=== PATIENT | male | born 2000 | race Caucasian/White ===

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

== ENCOUNTER 2018-06-28 02:58 | Emergency (ER) | payer MEDICAID ==
[~2018-06-28] VITALS: Ht 172.7 cm; Wt 109.1 kg
[2018-06-28] MEDS ORDERED: KETOROLAC TROMETHAMINE 60 MG/2 ML VIAL IM ONE (04:15)
[2018-06-28] MEDS ORDERED: CARISOPRODOL 350 MG TABLET PO ONE (04:45)
[2018-06-28 04:53] LABS: BASOPHILS % (AUTO) 0.8 % (0.0-2.0); EOSINOPHILS % (AUTO) 2.5 % (1.0-6.0); HEMATOCRIT 43.9 % (41-53); HEMOGLOBIN 14.6 g/dL (13.5-17.5); LYMPHOCYTES # (AUTO) 2.5 K/uL (1.0-4.8); LYMPHOCYTES % (AUTO) 31.9 % (22.0-44.0); MEAN CORPUSCULAR HEMOGLOBIN 28.6 pg (26.0-34.0); MEAN CORPUSCULAR HGB CONC 33.2 G/dL (31.0-37.0); MEAN CORPUSCULAR VOLUME 86 fL (80-100); MONOCYTES # (AUTO) 0.6 K/uL (0.1-1.0); MONOCYTES % (AUTO) 7.3 % (2.0-9.0); NEUTROPHILS # (AUTO) 4.5 K/uL (1.8-7.7); NEUTROPHILS % (AUTO) 57.5 % (40.0-70.0); PLATELET COUNT (AUTO) 275 K/uL (150-450); RED BLOOD CELL COUNT(AUTO) 5.11 MIL/uL (4.50-5.90); RED CELL DISTRIBUTION WIDTH 13.8 % (11.5-14.5)
[2018-06-28 05:09] LABS: ANION GAP 9 mmol/L (8-16); CALCIUM, TOTAL 8.6 mg/dL (8.8-10.5); CARBON DIOXIDE 26 mmol/L (22-29); CHLORIDE 104 mmol/L (98-107); CREATININE 0.87 mg/dL (0.60-1.30); GLOMERULAR FILTR. RATE CALC > 60 mL/min (>60); GLUCOSE,RANDOM 114 mg/dL (70-110); POTASSIUM 3.8 mmol/L (3.5-5.1); SODIUM SERUM 139 mmol/L (136-145); UREA NITROGEN, BLOOD 10 mg/dL (7-18)
[2018-06-28 05:14] LABS: ALANINE AMINOTRANSFERASE 40 U/L (12-78); ALBUMIN 3.7 g/dL (3.4-5.0); ALKALINE PHOSPHATASE 68 U/L (46-116); ASPARTATE AMINOTRANSFERASE 23 U/L (15-37); BILIRUBIN,TOTAL 0.6 mg/dL (0.1-1.0)
[2018-06-28 05:55] VITALS: BP 122/78
== END 2018-06-28 06:00 | disposition home or self-care (01) ==
LOC: EMS 03:02
DX: M54.12 Radiculopathy, cervical region (principal); F41.9 Anxiety disorder, unspecified; R20.0 Anesthesia of skin; E66.9 Obesity, unspecified; J45.909 Unspecified asthma, uncomplicated; F31.9 Bipolar disorder, unspecified; I10 Essential (primary) hypertension; F12.90 Cannabis use, unspecified, uncomplicated; Z68.36 Body mass index [BMI] 36.0-36.9, adult
CPT/HCPCS: 36415; 72125; 80053; 85025; 93005; 96372; 99284; J1885

== ENCOUNTER 2019-07-25 00:03 | Emergency (ER) | payer SELFPAY ==
[~2019-07-25] VITALS: Ht 177.8 cm; Wt 115.9 kg
[2019-07-25] MEDS ORDERED: HYDR-4031 PO (00:39)
[2019-07-25] MEDS ORDERED: TRAZ-252 PO (00:39)
[2019-07-25] MEDS ORDERED: LISI-660 PO (00:39)
[2019-07-25] MEDS ORDERED: ACETAMINOPHEN 500 MG TABLET PO ONE (00:45)
[2019-07-25 02:18] VITALS: BP 132/87
== END 2019-07-25 02:21 | disposition home or self-care (01) ==
LOC: EMS 00:03
DX: S93.402A Sprain of unspecified ligament of left ankle, initial encounter (principal); J45.909 Unspecified asthma, uncomplicated; F31.9 Bipolar disorder, unspecified; I10 Essential (primary) hypertension; F12.90 Cannabis use, unspecified, uncomplicated; Z79.899 Other long term (current) drug therapy; W19.XXXA Unspecified fall, initial encounter; Y93.89 Activity, other specified; Y92.89 Other specified places as the place of occurrence of the external cause; Y99.8 Other external cause status
CPT/HCPCS: 29515; 29540

== ENCOUNTER 2019-09-14 18:58 | Emergency (ER) | payer MEDICAID ==
[~2019-09-14] VITALS: Ht 177.8 cm; Wt 113.6 kg
[~2019-09-14 18:58] MED LIST: HYDR-4031 PO; LISI-660 PO; TRAZ-252 PO
[2019-09-14 19:44] LABS: GLUCOSE,POINT OF CARE 142 MG/DL (70-110)
[2019-09-14 19:57] LABS: BASOPHILS % (AUTO) 0.5 % (0.0-2.0); EOSINOPHILS % (AUTO) 1.3 % (1.0-6.0); HEMATOCRIT 44.9 % (41-53); LYMPHOCYTES # (AUTO) 2.1 K/uL (1.0-4.8); LYMPHOCYTES % (AUTO) 19.4 % (22.0-44.0); MEAN CORPUSCULAR HGB CONC 33.3 G/dL (31.0-37.0); MEAN CORPUSCULAR VOLUME 87 fL (80-100); MONOCYTES # (AUTO) 0.6 K/uL (0.1-1.0); MONOCYTES % (AUTO) 5.3 % (2.0-9.0); NEUTROPHILS # (AUTO) 7.8 K/uL (1.8-7.7); NEUTROPHILS % (AUTO) 73.5 % (40.0-70.0); PLATELET COUNT (AUTO) 306 K/uL (150-450); RED BLOOD CELL COUNT(AUTO) 5.17 MIL/uL (4.50-5.90); RED CELL DISTRIBUTION WIDTH 13.8 % (11.5-14.5)
[2019-09-14 20:14] LABS: ANION GAP 8 mmol/L (8-16); CARBON DIOXIDE 29 mmol/L (22-29); CHLORIDE 103 mmol/L (98-107); CREATININE 1.28 mg/dL (0.60-1.30); GLOMERULAR FILTR. RATE CALC > 60 mL/min (>60); GLUCOSE,RANDOM 127 mg/dL (70-110); SODIUM SERUM 140 mmol/L (136-145); UREA NITROGEN, BLOOD 9 mg/dL (7-18)
[2019-09-14 20:16] LABS: ALANINE AMINOTRANSFERASE 37 U/L (12-78); ALBUMIN 3.9 g/dL (3.4-5.0); ALKALINE PHOSPHATASE 79 U/L (46-116); ASPARTATE AMINOTRANSFERASE 17 U/L (15-37); BILIRUBIN,TOTAL 0.5 mg/dL (0.1-1.0); TOTAL PROTEIN, SERUM 7.4 g/dL (6.4-8.2)
[2019-09-14 20:17] LABS: AMPHET/METH SCREEN,URINE POSITIVE (NEGATIVE); BARBITURATE SCREEN, URINE NEGATIVE (NEGATIVE); BENZODIAZEPINES SCREEN,URINE NEGATIVE (NEGATIVE); CANNABINOID SCREEN,URINE POSITIVE (NEGATIVE); COCAINE SCREEN,URINE NEGATIVE (NEGATIVE); METHADONE SCREEN, URINE NEGATIVE (NEGATIVE); OPIATE SCREEN,URINE NEGATIVE (NEGATIVE)
[2019-09-14 20:18] LABS: PHENCYCLIDINE SCREEN,URINE NEGATIVE (NEGATIVE)
[2019-09-14 20:30] VITALS: BP 114/74
== END 2019-09-14 21:35 | disposition home or self-care (01) ==
LOC: EMS 19:00
DX: F12.10 Cannabis abuse, uncomplicated (principal); G93.40 Encephalopathy, unspecified; F31.9 Bipolar disorder, unspecified; I10 Essential (primary) hypertension; Z79.899 Other long term (current) drug therapy
CPT/HCPCS: 51701

== ENCOUNTER 2022-04-08 10:26 | Emergency (ER) | payer MEDICAID ==
[~2022-04-08] VITALS: Ht 172.7 cm; Wt 145.4 kg
[~2022-04-08 10:26] MED LIST changes: -HYDR-4031 PO; +HYDR-4808 PO; -LISI-660 PO; +LISI-892 PO
[2022-04-08 10:31] VITALS: BP 142/80
[2022-04-08] MEDS ORDERED: IBUPROFEN 600 MG TABLET PO ONE (11:00)
[2022-04-08] MEDS ORDERED: ACETAMINOPHEN 500 MG TABLET PO ONE (11:00)
== END 2022-04-08 13:28 | disposition home or self-care (01) ==
LOC: EMS 10:28
DX: S09.90XA Unspecified injury of head, initial encounter (principal); M54.2 Cervicalgia; J45.909 Unspecified asthma, uncomplicated; F31.9 Bipolar disorder, unspecified; I10 Essential (primary) hypertension; F12.90 Cannabis use, unspecified, uncomplicated; Y04.8XXA Assault by other bodily force, initial encounter; Y93.89 Activity, other specified; Y92.89 Other specified places as the place of occurrence of the external cause; Y99.8 Other external cause status
CPT/HCPCS: 70450; 72125; 99284

== ENCOUNTER 2023-02-16 18:17 | Emergency (ER) | payer SELFPAY ==
[~2023-02-16] VITALS: Ht 172.7 cm; Wt 113.6 kg
[2023-02-16 18:28] VITALS: TEMP 97.9
[2023-02-16] MEDS ORDERED: TraMADol HCL 50 MG TABLET PO ONE (18:30)
[2023-02-16] MEDS ORDERED: TRAM-559 PO (20:16)
[2023-02-16 20:42] VITALS: BP 142/90; PULSE 90; RESP 16
== END 2023-02-16 20:44 | disposition home or self-care (01) ==
LOC: EMS 18:25
DX: S93.401A Sprain of unspecified ligament of right ankle, initial encounter (principal); J45.909 Unspecified asthma, uncomplicated; F31.9 Bipolar disorder, unspecified; I10 Essential (primary) hypertension; F12.90 Cannabis use, unspecified, uncomplicated; F60.3 Borderline personality disorder; X58.XXXA Exposure to other specified factors, initial encounter; Y93.89 Activity, other specified; Y92.89 Other specified places as the place of occurrence of the external cause; Y99.8 Other external cause status
CPT/HCPCS: 99283